=== PATIENT | male | born 1970 | race Caucasian/White ===

== ENCOUNTER 2021-10-04 10:41 | Emergency (ER) | payer OTHER ==
--- NOTE | 2021-10-04 10:51 | ERPHSYRPT ---
- History of Present Illness Time Seen by Provider: 10/04/21 10:51 Source: patient Exam Limitations: no limitations Physician History: This is a right-handed 50-year-old white male has a history of hypothyroidism and suffered a dog bite with puncture wound to the right hand. Patient was bitten by dog last night at approximately 9:30 PM. It was aggressively washed. There is redness and swelling to both the dorsal aspect of his right hand and the palmar aspect. Patient has not had a fever. Patient tetanus status is up-to-date. Timing/Duration: yesterday Quality: painful Severity: mild (Moderate) Location: hands (Right hand) Possible Causes: other (Dog bite) Associated Symptoms: swelling/mass/lumps Allergies/Adverse Reactions: cephalexin monohydrate [From [employer]] Allergy (Mild, Verified 10/04/21 10:49) Stomach Pain Home Medications: Levothyroxine Sodium 1 tab PO DAILY 04/13/12 [History] Hx Tetanus, Diphtheria Vaccination/Date Given: Yes Hx Influenza Vaccination/Date Given: No Hx Pneumococcal Vaccination/Date Given: No Travel Risk - International Travel Have you traveled outside of the country in past 3 weeks: No - Coronavirus Screening Are you exhibiting any of the following symptoms?: No Close contact with a COVID-19 positive Pt in past 14-21 Days: No - Review of Systems Constitutional: No Symptoms Eyes: No Symptoms Ears, Nose, & Throat: No Symptoms Respiratory: No Symptoms Cardiac: No Symptoms Abdominal/Gastrointestinal: No Symptoms Genitourinary Symptoms: No Symptoms Musculoskeletal: Injury (Dog bite to right hand) Skin: Cellulitis (Right hand) Neurological: No Symptoms Psychological: No Symptoms Endocrine: No Symptoms Hematologic/Lymphatic: No Symptoms Immunological/Allergic: No Symptoms All Other Systems: Reviewed and Negative - Past Medical History Pertinent Past Medical History: Yes Neurological History: No Pertinent History ENT History: No Pertinent History, Other Cardiac History: No Pertinent History Respiratory History: No Pertinent History Endocrine Medical History: No Pertinent History, Hyperthyroidism, Hypothyroidism Musculoskeletal History: No Pertinent History GI Medical History: No Pertinent History History: No Pertinent History Psycho-Social History: No Pertinent History Male Reproductive Disorders: No Pertinent History - Past Surgical History Past Surgical History: Yes Neuro Surgical History: No Pertinent History Cardiac: No Pertinent History Respiratory: No Pertinent History Gastrointestinal: No Pertinent History Genitourinary: No Pertinent History Musculoskeletal: No Pertinent History Male Surgical History: No Pertinent History Other Surgical History: Thyroidectomy 2005, knee surgery, 2009 - Social History Smoking Status: Never smoker Exposure to second hand smoke: No Drug Use: none Patient Lives Alone: No - Nursing Vital Signs Nursing Vital Signs: Initial Vital Signs Temperature 98.6 F 10/04/21 10:51 Pulse Rate 88 10/04/21 10:51 Respiratory Rate 18 10/04/21 10:51 Blood Pressure 143/96 10/04/21 10:51 O2 Sat by Pulse Oximetry 97 10/04/21 10:51 Pain Scale Pain Intensity 5 - Physical Exam General Appearance: no apparent distress, alert, anxiety Eye Exam: PERRL/EOMI, eyes nml inspection Ears, Nose, Throat Exam: normal ENT inspection, moist mucous membranes Neck Exam: normal inspection, non-tender, supple, full range of motion Respiratory Exam: airway intact, No chest tenderness, No respiratory distress Gastrointestinal/Abdomen Exam: No tenderness Rectal Exam: not done Extremity Exam: swelling (Puncture wound site to right hand dorsal aspect and palmar aspect. Small amount of drainage present from puncture site on the dorsal aspect. This was cultured.), tenderness Neurologic Exam: alert, oriented x 3, cooperative, dust handler II-XII nml as tested, normal mood/affect, nml cerebellar function, nml station & gait, sensation nml Skin Exam: other (See abovedog bite) Lymphatic Exam: No adenopathy SpO2 Interpretation: normal O2 Delivery: Room Air - Course Nursing assessment & vital signs reviewed: Yes - Progress Counseled pt/family regarding: diagnosis, need for follow-up - Departure Departure Disposition: Home Clinical Impression: Cellulitis of right hand, Dog bite of hand Condition: Stable Critical Care Time: No Additional Instructions: Do not use lotions or ointments or creams. Soak right hand with warm soapy water and warm Epson salts. Follow-up with hand surgeon/Ortho at scheduled outpatient clinic appointment we arranged for you. Take your antibiotics as prescribed. Prescriptions: Hydrocodone/APAP 5/325 [[place] 5/325 mg] 1 each PO Q8H PRN PRN #6 tablet MDD 3 PRN Reason: Pain Doxycycline Hyclate 100 mg [Vibramycin 100 MG] 100 mg PO BID #14 tab
[2021-10-04 10:56] VITALS: BP 143/96; PULSE 88; O2SAT 97
[2021-10-04] MEDS ORDERED: NORCO 5/325 MG ONE (11:19)
[2021-10-04] MEDS ORDERED: Vibramycin 100 MG ONE (11:20)
[2021-10-04] MEDS: NORCO 5/325 MG PO ONE (11:20)
[2021-10-04] MEDS: Vibramycin 100 MG PO ONE (11:21)
== END 2021-10-04 11:39 | disposition home or self-care (01) ==
LOC: ED 10:41
DX: S60.571A Other superficial bite of hand of right hand, initial encounter (principal); L03.113 Cellulitis of right upper limb; W54.0XXA Bitten by dog, initial encounter; Z79.891 Long term (current) use of opiate analgesic
CPT/HCPCS: 87070; 99284; A9270-GY